=== PATIENT | male | born 1950 | race Caucasian/White ===

== ENCOUNTER 2021-05-28 11:58 | Emergency (ER) | payer OTHER, SELFPAY ==
[2021-05-28 12:50] VITALS: BP 97/63; PULSE 80; RESP 18; TEMP 36.7; O2SAT 95; BMI 27.4
--- NOTE | 2021-05-28 12:51 | ED_ITS ---
HPI - General Adult General Chief complaint: General Medical Stated complaint: urinary problem, flank pain Time Seen by Provider: 05/28/21 12:50 Related Data Allergies Allergy/AdvReac Type Severity Reaction Status Date / Time No Known Allergies Allergy Unverified 04/27/20 18:38 [facility] Social History Social History Advance Directives: No Advance Directives Information Provided: No Physical Exam Vital Signs: Vital Signs: Last Vital Signs Temp 98.1 F 05/28/21 12:50 Pulse 80 05/28/21 12:50 Resp 18 05/28/21 12:50 BP 97/63 05/28/21 12:50 Pulse Ox 95 05/28/21 12:50 Body Mass Index 27.4 Course Course Course Narrative: 1250-This is rapid medical exam. 70 yo male here with cough, body aches, fevers, nasal congestion, weakness, chills, dysuria since last night. Will check UA, COVID test, labs. Deferred HPI, ROS, PE to primary provider. Medical Decision Making Lab Data Labs: Lab Results 05/28/21 Range/Units 12:55 Urine Color YELLOW Urine Appearance HAZY Urine pH 6.0 (5.0-8.0) Ur Specific [place] 1.020 (1.005-1.025) Urine Protein TRACE (NEG-TRACE) MG/DL Urine Glucose (UA) NEG (NEG) MG/DL Urine Ketones NEG (NEG) MG/DL Urine Blood 3+ H (NEG) Urine Nitrite NEG (NEG) Ur Leukocyte Esterase NEG (NEG) Urine RBC 50-75 H (0) /HPF Urine WBC 1-4 (0-4) /HPF Ur Squamous Epith Cells TRACE /LPF Urine Bacteria NONE /LPF Discharge Plan Discharge Clinical Impression: Acute viral syndrome Patient Disposition: Elopement Discharge Date/Time: 05/28/21 17:45
[2021-05-28 13:04] LABS: Appearance Urine HAZY; Color Urine YELLOW; Glucose Urine UA NEG (NEG); Leukocyte Esterase Urine NEG (NEG); Nitrite Urine NEG (NEG); UACC Culture Trigger NO; Urine Blood 3+ (NEG); Urine Ketones NEG (NEG); Urine Protein TRACE MG/DL (NEG-TRACE)
[2021-05-28 13:33] LABS: RBC Urine 50-75 /HPF (0); Squamous Epithelial Cell Urine TRACE /LPF
== END 2021-05-28 17:45 | disposition left against medical advice (07) ==
PROVIDERS: Nurse Practitioner Family; Emergency Provider Emergency Medicine
DX: B34.9 Viral infection, unspecified (principal); R35.0 Frequency of micturition; R10.9 Unspecified abdominal pain; Z79.899 Other long term (current) drug therapy
CPT/HCPCS: 81001; 81003; 99282